=== PATIENT | female | born 1960 | race Caucasian/White ===

== ENCOUNTER → 2017-09-15 | Outpatient (CLI) | payer OTHER ==
--- NOTE | 2017-09-15 14:49 | RAD ---
Bone densitometry scan, 09/15/2017: History: Osteopenia The lumbar spine and right hip were examined utilizing a DEXA technique. The bone mineral density in the lumbar spine as measured from the L1-L4 levels is 0.97 g/sq cm. This yields a T score of -1.8 compatible with osteopenia. This score is unchanged since the 04/24/2015 exam. The total T score at the right hip is currently -1.5. On the previous study the right hip T score was -1.2. IMPRESSION: Ongoing osteopenia with slight interval worsening at the right hip.
--- NOTE | 2017-09-16 09:13 | RAD ---
DATE: 09/16/2017 EXAM: 2-D SCREENING BILATERAL HISTORY: Routine screening COMPARISON: 2015 mammogram This study was interpreted with the benefit of Computerized Aided Detection (CAD). FINDINGS: 2-D imaging was performed in CC and MLO projections. Breast density category B: There are scattered areas of fibroglandular densities. The skin and nipples are within normal limits. No suspicious calcifications, spiculated masses or areas of architectural distortion. IMPRESSION: Stable mammograms without evidence of malignancy. BI-RADS CATEGORY: 1 NEGATIVE RECOMMENDED FOLLOW-UP: 12M 12 MONTH FOLLOW-UP PQRS compliance statement: Patient information was entered into a reminder system with a target due date 09/16/2018 for the next mammogram. Mammography is a sensitive method for finding small breast cancers, but it does not detect them all and is not a substitute for careful clinical examination. A negative mammogram does not negate a clinically suspicious finding and should not result in delay in biopsying a clinically suspicious abnormality. "Our facility is accredited by the [employer] Mammography Program."
== END | disposition home or self-care (01) ==
LOC: DXRAD 14:11
PROVIDERS: ATTEND Nurse Practitioner Family
DX: Z12.31 Encounter for screening mammogram for malignant neoplasm of breast (principal); Z13.820 Encounter for screening for osteoporosis; Z78.0 Asymptomatic menopausal state; M85.80 Other specified disorders of bone density and structure, unspecified site
CPT/HCPCS: 77080; G0202; 77067